=== PATIENT | female | born 1935 | race African-American/Black ===

== ENCOUNTER → 2017-05-28 | Outpatient (CLI) | payer MEDICARE, MEDICAID | END | disposition home or self-care (01) | LOC: MAMMO 07:59 | PROVIDERS: ATTEND Specialist | DX: Z12.31 Encounter for screening mammogram for malignant neoplasm of breast (principal) | CPT/HCPCS: 77067 ==

== ENCOUNTER 2023-04-26 18:34 | Emergency (ER) | payer MEDICARE, MEDICAID ==
[~2023-04-26] VITALS: Ht 165.1 cm; Wt 100.0 kg
[~2023-04-26 18:34] MED LIST: HYDR-4134 MT; OLME40TA18 MT; ROSU5TAB MT; TRIA1TAB92 MT
[2023-04-26 18:50] VITALS: TEMP 98.2; O2SAT 97
[2023-04-26 19:25] LABS: BASOPHILS % 0.2 % (0.0-2.0); EOSINOPHILS % 1.6 % (0.0-5.0); HEMATOCRIT. 32.4 % (36.0-48.0); HEMOGLOBIN. 10.4 g/dL (12.0-16.0); LYMPHOCYTES % 26.7 % (20.0-50.0); MEAN CORPUSCULAR HEMOGLOBIN 28.7 pg (28.0-32.0); MEAN CORPUSCULAR HGB CONC 32.2 g/dL (31.0-37.0); MEAN CORPUSCULAR VOLUME 89.1 fL (81.0-99.0); MEAN PLATELET VOLUME 8.4 fl (7.4-10.4); MONOCYTES % 8.3 % (2.0-8.0); NEUTROPHILS % 63.2 % (40.0-76.0); PLATELET 248 x1000/uL (130-400); RED BLOOD CELL COUNT 3.64 mill/uL (4.2-5.4); RED CELL DISTRIBUTION WIDTH 14.8 % (11.6-14.6); WHITE BLOOD COUNT 8.6 x1000/uL (4.5-11.0)
[2023-04-26 19:38] LABS: ALANINE AMINOTRANSFERASE 33 IU/L (10-49); ASPARTATE AMINOTRANSFERASE 47 IU/L (<34); BILIRUBIN TOTAL 0.4 mg/dL (0.1-1.0); CALCIUM 9.5 mg/dL (8.7-10.4); CARBON DIOXIDE 29 mEq/L (21-32); CHLORIDE 112 mEq/L (98-107); CREATININE 1.2 mg/dL (0.6-1.0); GLUCOSE 114 mg/dL (70-105); POTASSIUM 3.6 mEq/L (3.5-5.1); SODIUM 145 mEq/L (136-145); UREA NITROGEN BLOOD 17 mg/dL (9-23)
[2023-04-26 20:56] VITALS: BP 141/90; PULSE 72; RESP 16
== END 2023-04-26 21:40 | disposition left against medical advice (07) ==
LOC: ER 18:34
DX: I10 Essential (primary) hypertension (principal); Z53.21 Procedure and treatment not carried out due to patient leaving prior to being seen by health care provider
CPT/HCPCS: 36415; 80053; 85025; 93005; 99281